=== PATIENT | female | born 1985 | race Caucasian/White ===

== ENCOUNTER 2019-02-16 18:59 | Inpatient (IN) | payer BC ==
[2019-02-16] MEDS ORDERED: Nalbuphine 20 MG/ML 1 ML Syringe IVPUSH PRN (21:15)
[2019-02-16] MEDS ORDERED: Sodium Chloride 0.9% 10 ML Syringe FLUSH PRN (21:15)
[2019-02-16] MEDS ORDERED: Lactated Ringers 1,000 ML IV SCH (21:15)
[2019-02-16] MEDS ORDERED: Ondansetron 4 MG/2 ML SDV IVPUSH PRN (21:15)
[2019-02-16] MEDS ORDERED: Oxytocin/Lactated Ringers 10 UNIT/1,000 ML BAG IV SCH ×2 (21:15)
[2019-02-16] MEDS ORDERED: Lidocaine 1% 50 ML MDV INJECT ONE (21:15)
[2019-02-16] MEDS ORDERED: Acetaminophen 325 MG Tab PO PRN (21:15)
[2019-02-17] MEDS ORDERED: Magnesium Sulfate/Water 2 GM in Premix Bag 1 BAG IV SCH (03:00)
[2019-02-17] MEDS ORDERED: Magnesium Sulfate/Water 4 GM in Premix Bag 1 BAG IV ONE (03:00)
[2019-02-17] MEDS ORDERED: MAGNESIUM SULFATE IV SCH (03:30)
[2019-02-17] MEDS ORDERED: WATER IV SCH (03:30)
[2019-02-17] MEDS ORDERED: Labetalol 100 MG/20 ML MDV IVPUSH ONE ×4 (06:11→12:37)
[2019-02-17] MEDS ORDERED: fentaNYL 100 MCG/2 ML SDV EPIDUR PRN (07:19)
[2019-02-17] MEDS ORDERED: fentaNYL/Bupivacaine-NS 2 MCG/ML-0.125%/PF 100 ML Bag EPIDUR PRN (07:19)
[2019-02-17] MEDS ORDERED: ePHEDrine 50 MG/ML SDV IVPUSH PRN ×3 (07:19→18:00)
--- NOTE | 2019-02-17 07:27 | PCM.PREANE ---
Preanesthetic Assessment - Anesthesia/Transfusion/Family Hx Anesthesia History: Prior Anesthesia Without Reaction Family History of Anesthesia Reaction: No Transfusion History: No Prior Transfusion(s) Intubation History: Unknown - Review of Systems General: No Symptoms Pulmonary: No Symptoms Cardiovascular: No Symptoms (Gestational hypertension on day of labor) Gastrointestinal: No Symptoms (GERD) Neurological: No Symptoms Other: Reports: None - Physical Assessment NPO Status Date: 02/16/19 NPO Status Time: 18:00 Pulse: 83 O2 Sat by Pulse Oximetry: 99 Respiratory Rate: 16 Blood Pressure: 144/83 Temperature: 37.5 C Vital Signs: Last Vital Signs Temp 37.5 C 02/16/19 19:52 Pulse 8 L 02/16/19 19:52 Resp 16 02/16/19 19:52 BP 144/83 H 02/16/19 19:52 Pulse Ox Height: 1.75 m Weight: 105.687 kg ASA Class: 2 Mental Status: Alert & Oriented x3 Airway Class: Mallampati = 2 Dentition: Reports: Normal Dentition, Caries Thyro-Mental Finger Breadths: 3 Mouth Opening Finger Breadths: 3 ROM/Head Extension: Full Lungs: Clear to Auscultation, Normal Respiratory Effort Cardiovascular: Regular Rate, Regular Rhythm, No Murmurs - Lab Values: Laboratory Last Values WBC 17.08 K/mm3 (3.98-10.04) H 02/17/19 01:50 RBC 4.71 M/mm3 (3.98-5.22) 02/17/19 01:50 Hgb 13.8 gm/L (11.2-15.7) 02/17/19 01:50 Hct 40.4 % (34.1-44.9) 02/17/19 01:50 MCV 85.8 fl (79.4-94.8) 02/17/19 01:50 MCH 29.3 pg (25.6-32.2) 02/17/19 01:50 MCHC 34.2 g/dl (32.2-35.5) 02/17/19 01:50 RDW Std Deviation 41.5 fL (36.4-46.3) 02/17/19 01:50 Plt Count 263 K/mm3 (182-369) 02/17/19 01:50 MPV 9.9 fl (9.4-12.3) 02/17/19 01:50 Neut % (Auto) 89.5 % (34.0-71.1) H 02/17/19 01:50 Lymph % (Auto) 6.7 % (19.3-51.7) L 02/17/19 01:50 [place] % (Auto) 3.4 % (4.7-12.5) L 02/17/19 01:50 Eos % (Auto) 0 (0.7-5.8) L 02/17/19 01:50 Baso % (Auto) 0.1 % (0.1-1.2) 02/17/19 01:50 Neut # (Auto) 15.30 K/mm3 (1.56-6.13) H 02/17/19 01:50 Lymph # (Auto) 1.14 K/mm3 (1.18-3.74) L 02/17/19 01:50 [place] # (Auto) 0.58 K/mm3 (0.24-0.36) H 02/17/19 01:50 Eos # (Auto) 0.00 K/mm3 (0.04-0.36) L 02/17/19 01:50 Baso # (Auto) 0.01 K/mm3 (0.01-0.08) 02/17/19 01:50 Manual Slide Review Abnormal smear 02/17/19 01:50 BUN 13 mg/dL (7-18) 02/17/19 01:50 Creatinine 0.9 mg/dL (0.55-1.02) 02/17/19 01:50 Est Cr Clr Drug Dosing 91.18 mL/min 02/17/19 01:50 Estimated GFR (MDRD) > 60 mL/min (>60) 02/17/19 01:50 AST 22 U/L (15-37) 02/17/19 01:50 ALT 28 U/L (14-59) 02/17/19 01:50 Above labs reviewed and noted and within acceptable ranges to proceed with epidural if desired. - Allergies Allergies/Adverse Reactions: Allergies Allergy/AdvReac Type Severity Reaction Status Date / Time No Known Allergies Allergy Verified 02/16/19 21:18 - Anesthesia Plan Pre-Op Medication Ordered: Beta Albert Beta Albert: Labetalol Med Last Dose Date: 02/17/19 Med Last Dose Time: 06:29 - Acknowledgements Anesthesia Type Planned: Epidural Pt an Appropriate Candidate for the Planned Anesthesia: Yes Alternatives and Risks of Anesthesia Discussed w Pt/Guardian: Yes Pt/Guardian Understands and Agrees with Anesthesia Plan: Yes PreAnesthesia Questionnaire HEENT History: Reports: Sinusitis Gastrointestinal History: Reports: GERD 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: Reports: Polycystic Ovaries, Spontaneous , Other (See Below) Other OB/BYN History: IVF - SUBSTANCE USE Smoking Status *Q: Never Smoker Tobacco Use Within Last Twelve Months: No Second Hand Smoke Exposure: Yes Recreational Drug Use History: No - HOME MEDS Home Medications: Home Meds PNV95/Ferrous Fumarate/FA [ Tablet] 1 tab PO DAILY 02/16/19 [History] - CURRENT (IN HOUSE) MEDS Current Meds: Current Medications Acetaminophen (Tylenol) 650 mg PO Q4H PRN PRN Reason: Pain (Mild 1-3) and fever Ephedrine Sulfate (Ephedrine Sulfate) 5 mg IVPUSH ASDIRECTED PRN PRN Reason: Hypotension Fentanyl (Sublimaze) 100 mcg EPIDUR Q3H PRN PRN Reason: Pain Fentanyl/Bupivacaine HCl (Rxlfcnte-Ypkut-Rt 2 Mcg/Ml-0.125%) 100 ml EPIDUR ASDIRECTED PRN PRN Reason: Pain Lactated Ringer's (Ringers, Lactated) 1,000 mls @ 100 mls/hr IV ASDIRECTED BALJIT Last Admin: 02/17/19 03:16 Dose: 50 mls/hr Oxytocin/Lactated Ringer's (Pitocin In Lr 10 Units/1,000 Ml) 10 unit in 1,000 mls @ 12 mls/hr IV TITRATE BALJIT; Protocol Last Titration: 02/17/19 06:45 Dose: 4 munits/min, 24 mls/hr Oxytocin/Lactated Ringer's (Pitocin In Lr 10 Units/1,000 Ml) 10 unit in 1,000 mls @ 100 mls/hr IV .CONTINUOUS BALJIT; Protocol Magnesium Sulfate (Magnesium Sulfate 40 Gm In Water 1000 Ml) 40 gm in 1,000 mls @ 50 mls/hr IV ASDIRECTED BALJIT Last Admin: 02/17/19 03:21 Dose: 50 mls/hr Phenylephrine HCl 1 mg/ Sodium (Chloride) 10.1 mls @ 1 mls/sec IV TITRATE BALJIT; Protocol Nalbuphine HCl (Nubain) 10 mg IVPUSH Q2H PRN PRN Reason: pain Ondansetron HCl (Zofran) 4 mg IVPUSH Q4H PRN PRN Reason: Nausea/Vomiting Sodium Chloride (Saline Flush) 10 ml FLUSH ASDIRECTED PRN PRN Reason: Keep Vein Open Discontinued Medications Magnesium Sulfate 4 gm/ Premix 50 mls @ 190 mls/hr IV ONETIME ONE Stop: 02/17/19 03:15 Last Admin: 02/17/19 03:05 Dose: 190 mls/hr Magnesium Sulfate 2 gm/ Premix 50 mls @ 25 mls/hr IV Q1H BALJIT Stop: 02/17/19 04:59 Labetalol HCl (Normodyne) 10 mg IVPUSH ONETIME ONE; Protocol Stop: 02/17/19 06:12 Last Admin: 02/17/19 06:26 Dose: 10 mg Lidocaine HCl (Xylocaine 1%) 50 ml INJECT ONETIME ONE Stop: 02/16/19 21:16
[2019-02-17] MEDS ORDERED: Phenylephrine 1 MG in Sodium Chloride 0.9% 10 ML IV SCH ×2 (07:30→17:00)
[2019-02-17] MEDS ORDERED: hydrALAZINE 20 MG/ML SDV IVPUSH ONE (09:51)
--- NOTE | 2019-02-17 14:27 | PCM.LDHP ---
L&D History of Present Illness - General Date of Service: 02/17/19 Admit Problem/Dx: Patient Status Order with Admit Dx/Problem 02/16/19 21:15 Patient Status [ADT] Routine Admission Diagnosis/Problem Admission Diagnosis/Problem Source of Information: Patient History Limitations: Reports: No Limitations - History of Present Illness Introduction:: 33 year old at 41w0d here for induction of labor for dates. PNC with myself complicated by IVF, PCOS. 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: Reports: Polycystic Ovaries, Spontaneous , Other (See Below) Other OB/BYN History: IVF Social & Family History - Family History Family Medical History: Noncontributory - Tobacco Use Smoking Status *Q: Never Smoker Second Hand Smoke Exposure: Yes - Caffeine Use Caffeine Use: Reports: None - Recreational Drug Use Recreational Drug Use: No H&P Review of Systems - Review of Systems: Review Of Systems: See Below General: Reports: No Symptoms HEENT: Reports: No Symptoms Pulmonary: Reports: No Symptoms Cardiovascular: Reports: No Symptoms Gastrointestinal: Reports: No Symptoms Genitourinary: Reports: No Symptoms Musculoskeletal: Reports: No Symptoms Skin: Reports: No Symptoms Psychiatric: Reports: No Symptoms Neurological: Reports: No Symptoms Hematologic/Lymphatic: Reports: No Symptoms Immunologic: Reports: No Symptoms L&D Exam - Exam Exam: See Below - Vital Signs Vital Signs: Last Vital Signs Temp 36.7 C 02/17/19 08:57 Pulse 53 L 02/17/19 12:30 Resp 16 02/17/19 07:27 BP 169/98 H 02/17/19 12:00 Pulse Ox 99 02/17/19 07:27 Weight: 105.687 kg - OB Specific Contraction Intensity: Mild Movement: Active Heart Tones: Present Heart Rate (FHR) Variability: Moderate (6-25 bmp) Presentation: Vertex Estimated Weight: 3850 - Yung Score Yung Score Cervix Position: Midposition Yung Score Consistency: Soft Yung Score Effacement: >80% Yung Score Dilation: > 5 cm Yung Score 's Station: -2 Yung Score Total: 10 - Exam General: Alert, Oriented HEENT: PERRLA, Conjunctiva Clear, EACs Clear, EOMI, Hearing Intact, Mucosa Moist & [place], Nares Patent, Normal Nasal Septum, Posterior Pharynx Clear, TMs Clear Neck: Supple, Trachea Midline Lungs: Clear to Auscultation, Normal Respiratory Effort Cardiovascular: Regular Rate, Regular Rhythm GI/Abdominal Exam: Normal Bowel Sounds, Soft, Non-Tender, No Organomegaly, No Distention, No Abnormal Bruit, No Mass, Pelvis Stable Rectal Exam: Normal Exam, Normal Rectal Tone Genitourinary: Normal external exam, Normal bimanual exam, Normal speculum exam Back Exam: Normal Inspection, Full Range of Motion Extremities: Normal Inspection, Normal Range of Motion, Non-Tender, No Pedal Edema, Normal Capillary Refill Skin: Warm, Dry, Intact Neurological: Cranial Nerves Intact, Reflexes Equal Bilateral Psychiatric: Alert, Normal Affect, Normal Mood - Patient Data Lab Results Last 24 hrs: Laboratory Results - last 24 hr 02/16/19 02/16/19 02/17/19 Range/Units 21:25 21:25 01:50 WBC 14.20 H 17.08 H (3.98-10.04) K/mm3 RBC 4.55 4.71 (3.98-5.22) M/mm3 Hgb 13.5 13.8 (11.2-15.7) gm/L Hct 39.5 40.4 (34.1-44.9) % MCV 86.8 85.8 (79.4-94.8) fl MCH 29.7 29.3 (25.6-32.2) pg MCHC 34.2 34.2 (32.2-35.5) g/dl RDW Std Deviation 41.0 41.5 (36.4-46.3) fL Plt Count 282 263 (182-369) K/mm3 MPV 9.8 9.9 (9.4-12.3) fl Neut % (Auto) 71.6 H 89.5 H (34.0-71.1) % Lymph % (Auto) 19.9 6.7 L (19.3-51.7) % [place] % (Auto) 7.5 3.4 L (4.7-12.5) % Eos % (Auto) 0.5 L 0 L (0.7-5.8) Baso % (Auto) 0.1 0.1 (0.1-1.2) % Neut # (Auto) 10.18 H 15.30 H (1.56-6.13) K/mm3 Lymph # (Auto) 2.83 1.14 L (1.18-3.74) K/mm3 [place] # (Auto) 1.06 H 0.58 H (0.24-0.36) K/mm3 Eos # (Auto) 0.07 0.00 L (0.04-0.36) K/mm3 Baso # (Auto) 0.01 0.01 (0.01-0.08) K/mm3 Manual Slide Review Abnormal smear BUN (7-18) mg/dL Creatinine (0.55-1.02) mg/dL Est Cr Clr Drug Dosing mL/min Estimated GFR (MDRD) (>60) mL/min Uric Acid (2.6-6.0) mg/dL AST (15-37) U/L ALT (14-59) U/L Lactate Dehydrogenase (81-234) U/L RPR Non-reactive (NONREACTIVE) 02/17/19 Range/Units 01:50 WBC (3.98-10.04) K/mm3 RBC (3.98-5.22) M/mm3 Hgb (11.2-15.7) gm/L Hct (34.1-44.9) % MCV (79.4-94.8) fl MCH (25.6-32.2) pg MCHC (32.2-35.5) g/dl RDW Std Deviation (36.4-46.3) fL Plt Count (182-369) K/mm3 MPV (9.4-12.3) fl Neut % (Auto) (34.0-71.1) % Lymph % (Auto) (19.3-51.7) % [place] % (Auto) (4.7-12.5) % Eos % (Auto) (0.7-5.8) Baso % (Auto) (0.1-1.2) % Neut # (Auto) (1.56-6.13) K/mm3 Lymph # (Auto) (1.18-3.74) K/mm3 [place] # (Auto) (0.24-0.36) K/mm3 Eos # (Auto) (0.04-0.36) K/mm3 Baso # (Auto) (0.01-0.08) K/mm3 Manual Slide Review BUN 13 (7-18) mg/dL Creatinine 0.9 (0.55-1.02) mg/dL Est Cr Clr Drug Dosing 91.18 mL/min Estimated GFR (MDRD) > 60 (>60) mL/min Uric Acid 5.9 (2.6-6.0) mg/dL AST 22 (15-37) U/L ALT 28 (14-59) U/L Lactate Dehydrogenase 153 (81-234) U/L RPR (NONREACTIVE) Result Diagrams: 02/17/19 01:50 02/17/19 01:50 Problem List Initiated/Reviewed/Updated: Yes Orders Last 24hrs: Active Orders 24 hr Category Date Time Status Patient Status [ADT] Routine ADT 02/16/19 21:15 Active Activity as Tolerated [RC] PFP Care 02/16/19 21:15 Active Communication Order [RC] ASDIRECTED Care 02/16/19 21:15 Active Heart Tones [RC] ASDIRECTED Care 02/16/19 21:16 Active Notify Provider [RC] ASDIRECTED Care 02/17/19 07:19 Active Notify Provider [RC] PFP Care 02/16/19 21:15 Active Oxygen Therapy [RC] ASDIRECTED Care 02/17/19 07:19 Active Peripheral IV Care [RC] . DIRECTED Care 02/16/19 21:16 Active Pulse Oximetry [RC] ASDIRECTED Care 02/17/19 07:19 Active Urinary Catheter Assessment [RC] ASDIRECTED Care 02/16/19 21:15 Active Vital Signs [RC] PER UNIT ROUTINE Care 02/16/19 21:15 Active Acetaminophen [Tylenol] Med 02/16/19 21:15 Active 650 mg PO Q4H PRN Lactated Ringers [Ringers, Lactated] 1,000 ml Med 02/16/19 21:15 Active IV ASDIRECTED Magnesium Sulfate/Water [Magnesium Sulfate 40 GM in Med 02/17/19 03:30 Active Water 1000 ML] 40 gm in 1,000 ml IV ASDIRECTED Nalbuphine [Nubain] Med 02/16/19 21:15 Active 10 mg IVPUSH Q2H PRN Ondansetron [Zofran] Med 02/16/19 21:15 Active 4 mg IVPUSH Q4H PRN Oxytocin/Lactated Ringers [Pitocin in LR 10 Units/1,000 Med 02/16/19 21:15 Active ML] 10 unit in 1,000 ml IV .CONTINUOUS Oxytocin/Lactated Ringers [Pitocin in LR 10 Units/1,000 Med 02/16/19 21:15 Active ML] 10 unit in 1,000 ml IV TITRATE Phenylephrine [Marcio-Synephrine] 1 mg Med 02/17/19 07:30 Active Sodium Chloride 0.9% [Normal Saline] 10 ml IV TITRATE Sodium Chloride 0.9% [Saline Flush] Med 02/16/19 21:15 Active 10 ml FLUSH ASDIRECTED PRN ePHEDrine [ePHEDrine sulfate] Med 02/17/19 07:19 Active 5 mg IVPUSH ASDIRECTED PRN fentaNYL [Sublimaze] Med 02/17/19 07:19 Active 100 mcg EPIDUR Q3H PRN fentaNYL/Bupivacaine/NS/PF [[id number]-RT 2 MCG/ML- Med 02/17/19 07:19 Active 0.125%] 100 ml EPIDUR ASDIRECTED PRN Electronic Heart Tones Ext w TOCO [WOMSER] Ot 02/16/19 21:15 Ordered Routine Electronic Heart Tones Internal [WOMSER] Per Unit Ot 02/16/19 21:15 Ordered Routine PIH Panel [OM.PC] Stat Ot 02/17/19 01:34 Ordered Peripheral IV Insertion Adult [OM.PC] Routine Ot 02/16/19 21:15 Ordered Resuscitation Status Routine Resus Stat 02/16/19 21:15 Ordered Medication Orders Acetaminophen (Tylenol) 650 mg PO Q4H PRN PRN Reason: Pain (Mild 1-3) and fever Ephedrine Sulfate (Ephedrine Sulfate) 5 mg IVPUSH ASDIRECTED PRN PRN Reason: Hypotension Fentanyl (Sublimaze) 100 mcg EPIDUR Q3H PRN PRN Reason: Pain Fentanyl/Bupivacaine HCl (Ynhqrnby-Scieo-Yk 2 Mcg/Ml-0.125%) 100 ml EPIDUR ASDIRECTED PRN PRN Reason: Pain Lactated Ringer's (Ringers, Lactated) 1,000 mls @ 100 mls/hr IV ASDIRECTED BALJIT Last Admin: 02/17/19 03:16 Dose: 50 mls/hr Oxytocin/Lactated Ringer's (Pitocin In Lr 10 Units/1,000 Ml) 10 unit in 1,000 mls @ 12 mls/hr IV TITRATE BALJIT; Protocol Last Titration: 02/17/19 14:18 Dose: 12 munits/min, 72 mls/hr Titration: 02/17/19 13:45 Dose: 11 munits/min, 66 mls/hr Titration: 02/17/19 13:25 Dose: 10 munits/min, 60 mls/hr Titration: 02/17/19 12:22 Dose: 9 munits/min, 54 mls/hr Titration: 02/17/19 11:45 Dose: 8 munits/min, 48 mls/hr Titration: 02/17/19 10:03 Dose: 7 munits/min, 42 mls/hr Titration: 02/17/19 08:56 Dose: 6 munits/min, 36 mls/hr Titration: 02/17/19 07:50 Dose: 5 munits/min, 30 mls/hr Titration: 02/17/19 06:45 Dose: 4 munits/min, 24 mls/hr Admin: 02/17/19 05:15 Dose: 2 munits/min, 12 mls/hr Oxytocin/Lactated Ringer's (Pitocin In Lr 10 Units/1,000 Ml) 10 unit in 1,000 mls @ 100 mls/hr IV .CONTINUOUS BALJIT; Protocol Magnesium Sulfate (Magnesium Sulfate 40 Gm In Water 1000 Ml) 40 gm in 1,000 mls @ 50 mls/hr IV ASDIRECTED BALJIT Last Admin: 02/17/19 03:21 Dose: 50 mls/hr Phenylephrine HCl 1 mg/ Sodium (Chloride) 10.1 mls @ 1 mls/sec IV TITRATE BALJIT; Protocol Nalbuphine HCl (Nubain) 10 mg IVPUSH Q2H PRN PRN Reason: pain Last Admin: 02/17/19 10:11 Dose: 10 mg Ondansetron HCl (Zofran) 4 mg IVPUSH Q4H PRN PRN Reason: Nausea/Vomiting Sodium Chloride (Saline Flush) 10 ml FLUSH ASDIRECTED PRN PRN Reason: Keep Vein Open Assessment/Plan Comment:: Postdates induction. AROM. Meconium stained fluid.
--- NOTE | 2019-02-17 14:29 | PCM.PNLD ---
Labor Progress Note - VS & Meds Vital Signs: Last Vital Signs Temp 36.7 C 02/17/19 08:57 Pulse 53 L 02/17/19 12:30 Resp 16 02/17/19 07:27 BP 169/98 H 02/17/19 12:00 Pulse Ox 99 02/17/19 07:27 Active Medications: Current Medications Acetaminophen (Tylenol) 650 mg PO Q4H PRN PRN Reason: Pain (Mild 1-3) and fever Ephedrine Sulfate (Ephedrine Sulfate) 5 mg IVPUSH ASDIRECTED PRN PRN Reason: Hypotension Fentanyl (Sublimaze) 100 mcg EPIDUR Q3H PRN PRN Reason: Pain Fentanyl/Bupivacaine HCl (Mcxsensz-Gsvis-Hy 2 Mcg/Ml-0.125%) 100 ml EPIDUR ASDIRECTED PRN PRN Reason: Pain Lactated Ringer's (Ringers, Lactated) 1,000 mls @ 100 mls/hr IV ASDIRECTED BALJIT Last Admin: 02/17/19 03:16 Dose: 50 mls/hr Oxytocin/Lactated Ringer's (Pitocin In Lr 10 Units/1,000 Ml) 10 unit in 1,000 mls @ 12 mls/hr IV TITRATE BALJIT; Protocol Last Titration: 02/17/19 14:18 Dose: 12 munits/min, 72 mls/hr Oxytocin/Lactated Ringer's (Pitocin In Lr 10 Units/1,000 Ml) 10 unit in 1,000 mls @ 100 mls/hr IV .CONTINUOUS BALJIT; Protocol Magnesium Sulfate (Magnesium Sulfate 40 Gm In Water 1000 Ml) 40 gm in 1,000 mls @ 50 mls/hr IV ASDIRECTED BALJIT Last Admin: 02/17/19 03:21 Dose: 50 mls/hr Phenylephrine HCl 1 mg/ Sodium (Chloride) 10.1 mls @ 1 mls/sec IV TITRATE BALJIT; Protocol Nalbuphine HCl (Nubain) 10 mg IVPUSH Q2H PRN PRN Reason: pain Last Admin: 02/17/19 10:11 Dose: 10 mg Ondansetron HCl (Zofran) 4 mg IVPUSH Q4H PRN PRN Reason: Nausea/Vomiting Sodium Chloride (Saline Flush) 10 ml FLUSH ASDIRECTED PRN PRN Reason: Keep Vein Open Discontinued Medications Hydralazine HCl (Apresoline) 5 mg IVPUSH ONETIME ONE Stop: 02/17/19 09:52 Last Admin: 02/17/19 10:03 Dose: 5 mg Magnesium Sulfate 4 gm/ Premix 50 mls @ 190 mls/hr IV ONETIME ONE Stop: 02/17/19 03:15 Last Admin: 02/17/19 03:05 Dose: 190 mls/hr Magnesium Sulfate 2 gm/ Premix 50 mls @ 25 mls/hr IV Q1H BALJIT Stop: 02/17/19 04:59 Labetalol HCl (Normodyne) 10 mg IVPUSH ONETIME ONE; Protocol Stop: 02/17/19 06:12 Last Admin: 02/17/19 06:26 Dose: 10 mg Labetalol HCl (Normodyne) 10 mg IVPUSH ONETIME ONE; Protocol Stop: 02/17/19 08:35 Last Admin: 02/17/19 08:42 Dose: 10 mg Labetalol HCl (Normodyne) 20 mg IVPUSH ONETIME ONE; Protocol Stop: 02/17/19 11:52 Last Admin: 02/17/19 12:06 Dose: 20 mg Labetalol HCl (Normodyne) 20 mg IVPUSH ONETIME ONE; Protocol Stop: 02/17/19 12:38 Last Admin: 02/17/19 12:40 Dose: 20 mg Lidocaine HCl (Xylocaine 1%) 50 ml INJECT ONETIME ONE Stop: 02/16/19 21:16 - Uterine Contractions Uterine Monitoring Mode: External [place] Contraction Intensity: Mild - Monitoring Monitor Mode: External Ultrasound Heart Rate (FHR) Variability: Moderate (6-25 bmp) - Vaginal Exam Dilation (cm): 7 Effacement (Percent): 90 Station: -2 Cervical Position: Anterior - Labor Progress (Free Text) Labor Progress: Good progress. On magnesium since 3:15 am with high blood pressures. Tolerating this well.
--- NOTE | 2019-02-17 14:32 | PCM.PNLD ---
Labor Progress Note - VS & Meds Vital Signs: Last Vital Signs Temp 36.7 C 02/17/19 08:57 Pulse 53 L 02/17/19 12:30 Resp 16 02/17/19 07:27 BP 169/98 H 02/17/19 12:00 Pulse Ox 99 02/17/19 07:27 Active Medications: Current Medications Acetaminophen (Tylenol) 650 mg PO Q4H PRN PRN Reason: Pain (Mild 1-3) and fever Ephedrine Sulfate (Ephedrine Sulfate) 5 mg IVPUSH ASDIRECTED PRN PRN Reason: Hypotension Fentanyl (Sublimaze) 100 mcg EPIDUR Q3H PRN PRN Reason: Pain Fentanyl/Bupivacaine HCl (Xllvpjcz-Viccp-Gw 2 Mcg/Ml-0.125%) 100 ml EPIDUR ASDIRECTED PRN PRN Reason: Pain Lactated Ringer's (Ringers, Lactated) 1,000 mls @ 100 mls/hr IV ASDIRECTED BALJIT Last Admin: 02/17/19 03:16 Dose: 50 mls/hr Oxytocin/Lactated Ringer's (Pitocin In Lr 10 Units/1,000 Ml) 10 unit in 1,000 mls @ 12 mls/hr IV TITRATE BALJIT; Protocol Last Titration: 02/17/19 14:18 Dose: 12 munits/min, 72 mls/hr Oxytocin/Lactated Ringer's (Pitocin In Lr 10 Units/1,000 Ml) 10 unit in 1,000 mls @ 100 mls/hr IV .CONTINUOUS BALJIT; Protocol Magnesium Sulfate (Magnesium Sulfate 40 Gm In Water 1000 Ml) 40 gm in 1,000 mls @ 50 mls/hr IV ASDIRECTED BALJIT Last Admin: 02/17/19 03:21 Dose: 50 mls/hr Phenylephrine HCl 1 mg/ Sodium (Chloride) 10.1 mls @ 1 mls/sec IV TITRATE BALJIT; Protocol Nalbuphine HCl (Nubain) 10 mg IVPUSH Q2H PRN PRN Reason: pain Last Admin: 02/17/19 10:11 Dose: 10 mg Ondansetron HCl (Zofran) 4 mg IVPUSH Q4H PRN PRN Reason: Nausea/Vomiting Sodium Chloride (Saline Flush) 10 ml FLUSH ASDIRECTED PRN PRN Reason: Keep Vein Open Discontinued Medications Hydralazine HCl (Apresoline) 5 mg IVPUSH ONETIME ONE Stop: 02/17/19 09:52 Last Admin: 02/17/19 10:03 Dose: 5 mg Magnesium Sulfate 4 gm/ Premix 50 mls @ 190 mls/hr IV ONETIME ONE Stop: 02/17/19 03:15 Last Admin: 02/17/19 03:05 Dose: 190 mls/hr Magnesium Sulfate 2 gm/ Premix 50 mls @ 25 mls/hr IV Q1H BALJIT Stop: 02/17/19 04:59 Labetalol HCl (Normodyne) 10 mg IVPUSH ONETIME ONE; Protocol Stop: 02/17/19 06:12 Last Admin: 02/17/19 06:26 Dose: 10 mg Labetalol HCl (Normodyne) 10 mg IVPUSH ONETIME ONE; Protocol Stop: 02/17/19 08:35 Last Admin: 02/17/19 08:42 Dose: 10 mg Labetalol HCl (Normodyne) 20 mg IVPUSH ONETIME ONE; Protocol Stop: 02/17/19 11:52 Last Admin: 02/17/19 12:06 Dose: 20 mg Labetalol HCl (Normodyne) 20 mg IVPUSH ONETIME ONE; Protocol Stop: 02/17/19 12:38 Last Admin: 02/17/19 12:40 Dose: 20 mg Lidocaine HCl (Xylocaine 1%) 50 ml INJECT ONETIME ONE Stop: 02/16/19 21:16 - Uterine Contractions Uterine Monitoring Mode: External [place] Contraction Intensity: Mild Uterine Resting Tone: Soft - Monitoring Monitor Mode: External Ultrasound Heart Rate (FHR) Variability: Moderate (6-25 bmp) Strip Review: Category I - Vaginal Exam Dilation (cm): 10 Effacement (Percent): 100 Station: -1 Cervical Position: Anterior - Labor Progress (Free Text) Labor Progress: Pushing somewhat well. Slow progress. Have needed to treat blood pressures with IV medications multiple times. Discussed possibility of .
[2019-02-17] MEDS ORDERED: Nalbuphine 20 MG/ML 1 ML Syringe IVPUSH PRN (15:37)
[2019-02-17] MEDS ORDERED: Sodium Chloride 0.9% 10 ML Syringe FLUSH PRN (15:37)
[2019-02-17] MEDS ORDERED: Citric Acid/Sodium Citrate Solution 30 ML Cup PO ONE (15:37)
[2019-02-17] MEDS ORDERED: Metoclopramide 10 MG/2 ML SDV IVPUSH ONE (15:37)
[2019-02-17] MEDS ORDERED: Bupivacaine 0.5% 30 ML SDV ONE (15:39)
[2019-02-17] MEDS ORDERED: Lactated Ringers 1,000 ML IV SCH (15:45)
[2019-02-17] MEDS ORDERED: Ketorolac 30 MG/ML SDV ONE (16:09)
[2019-02-17] MEDS ORDERED: Phenylephrine/Normal Saline 100 MCG/ML 10 ML Syringe ONE ×2 (16:09→17:15)
[2019-02-17] MEDS ORDERED: Lactated Ringers 2,000 ML ONE (16:09)
[2019-02-17] MEDS ORDERED: Ondansetron 4 MG/2 ML SDV ONE (16:09)
[2019-02-17] MEDS ORDERED: Oxytocin 10 Units/1 ML SDV ONE (16:09)
[2019-02-17] MEDS ORDERED: ceFAZolin 1 GM Vial ONE (16:09)
[2019-02-17] MEDS ORDERED: Morphine PF 10 MG/10 ML SDV ONE (16:09)
[2019-02-17] MEDS ORDERED: Ondansetron 4 MG/2 ML SDV IVPUSH PRN (16:48)
[2019-02-17] MEDS ORDERED: fentaNYL 100 MCG/2 ML SDV IVPUSH PRN (16:48)
[2019-02-17] MEDS ORDERED: HYDROmorphone 0.5 MG/0.5 ML Syringe IVPUSH PRN (16:48)
[2019-02-17] MEDS ORDERED: diphenhydrAMINE 50 MG/ML SDV IVPUSH PRN ×2 (16:48→18:00)
[2019-02-17] MEDS ORDERED: ePHEDrine 50 MG/ML SDV ONE (17:07)
[2019-02-17] MEDS ORDERED: fentaNYL 100 MCG/2 ML SDV ONE (17:09)
--- NOTE | 2019-02-17 17:39 | PCM.POSTAN ---
POST ANESTHESIA ASSESSMENT - MENTAL STATUS Mental Status: Alert - VITAL SIGNS Pulse Rate: 107 SaO2: 95 Resp Rate: 13 Blood Pressure: 87/64 Temperature: 36.6 C - RESPIRATORY Respiratory Status: Respiratory Rate WNL, Airway Patent, O2 Saturation Stable - CARDIOVASCULAR CV Status: Pulse Rate WNL, Blood Pressure Stable - GASTROINTESTINAL GI Status: No Symptoms - POST OP HYDRATION Hydration Status: Adequate & Stable
[2019-02-17] MEDS ORDERED: Naloxone 0.4 MG/ML SDV IVPUSH PRN (18:00)
[2019-02-17] MEDS ORDERED: Acetaminophen/oxyCODONE 325-5 MG Tab PO PRN (18:00)
[2019-02-17] MEDS ORDERED: Lanolin 100% Cream 7 GM Tube TOP PRN (18:00)
[2019-02-17] MEDS ORDERED: Dextrose 5%-Lactated Ringers 1,000 ML IV SCH (18:00)
[2019-02-17] MEDS: Ketorolac 30 MG/ML SDV IVPUSH SCH (22:15)
[2019-02-18] MEDS: Ketorolac 30 MG/ML SDV IVPUSH SCH ×2 (04:49→09:27)
--- NOTE | 2019-02-18 08:17 | PCM48HPAN ---
Post Anesthesia Note - EVALUATION WITHIN 48HRS OF ANESTHETIC Vital Signs in Normal Range: Yes Patient Participated in Evaluation: Yes Respiratory Function Stable: Yes Airway Patent: Yes Cardiovascular Function Stable: Yes Hydration Status Stable: Yes Pain Control Satisfactory: Yes Nausea and Vomiting Control Satisfactory: Yes Mental Status Recovered: Yes
[2019-02-18] MEDS ORDERED: Acetaminophen/oxyCODONE 325-5 MG Tab PO PRN (12:15)
[2019-02-18] MEDS: Ibuprofen 600 MG Tab PO PRN ×2 (14:52→21:44)
[2019-02-19] MEDS: Ibuprofen 600 MG Tab PO PRN (04:01)
[2019-02-19] MEDS ORDERED: Docusate Sodium 100 MG Cap PO PRN (05:24)
[2019-02-19] MEDS ORDERED: Simethicone 80 MG Tab.Chew PO PRN (05:24)
--- NOTE | 2019-02-27 18:36 | PCM.OPNOTE ---
- General Post-Op/Procedure Note Date of Surgery/Procedure: 02/17/19 Operative Procedure(s): primary section Findings: viable male, 3990g, 05/29 at 1655. Normal uterus tubes and ovaries Pre Op Diagnosis: non-reassuring monitoring Post-Op Diagnosis: Same Anesthesia Technique: Spinal Primary Surgeon: Shira Sue Individualized Education Plan Aide: Rin Martin EBL in mLs: 800 Complications: None Condition: Good Free Text/Narrative:: The patient was taken to the operating room where spinal anesthesia was dosed to surgical levels without difficulty. The patient was prepped and draped in the usual sterile fashion in the dorsal supine position with a leftward tilt. A Pfannenstiel skin incision was made with the scalpel and carried through to the underlying layer of fascia. The fascia was incised in the midline and extended laterally using Mccray scissors. Tre clamps were used to elevate the superior aspect of the fascial incision, which was elevated, and the underlying rectus muscles were dissected off bluntly and using Mccray scissors. Attention was then turned to the inferior aspect of the fascial incision, which in similar fashion was grasped with Tre clamps, elevated, and the underlying rectus muscles were dissected off bluntly and using the mccray. The rectus muscles were dissected in the midline. The peritoneum was entered bluntly; this incision was extended superiorly and inferiorly with good visualization of the bladder. The bladder blade was inserted. The vesicouterine peritoneum was identified and entered sharply using Metzenbaum scissors. This incision was extended laterally and the bladder flap was created digitally. The bladder blade was reinserted. The lower uterine segment was incised in a transverse fashion using the scalpel and with digital traction. Meconium stained fluid was noted. The infant was subsequently delivered by flexing the head to the incision. Body and shoulders followed without difficulty. The cord was clamped and cut. The infant was subsequently handed to the awaiting spot worker whose presence had been requested.. The placenta was delivered spontaneously intact with a three-vessel cord noted. The uterus was exteriorized and cleared of all clots and debris. The uterine incision was repaired in 2 layers using 0 monocryl. Hemostasis was visualized. Hemostasis was visualized bilaterally. The uterus was returned to the abdomen. The uterine incision was reexamined and it was noted to be hemostatic. The pelvis was copiously irrigated. The fascia was closed with 1 PDS suture, and the skin was closed with 3-0 monocryl. Sponge, lap, and instrument counts were correct x2. The patient was stable at the completion of the procedure and was subsequently transferred to the recovery room in stable condition.
--- NOTE | 2019-03-03 09:59 | PCM.DCSUM1 ---
Discharge Summary - Hospital Course Diagnosis: Stroke: No - Discharge Data Discharge Date: 02/19/19 Discharge Disposition: Home, Self-Care 01 Condition: Good - Patient Summary/Data Operative Procedure(s) Performed: primary section - Patient Instructions Diet: Regular Diet as Tolerated Activity: No Lifting Over 10 Pounds Driving: Do Not Drive Showering/Bathing: May Shower, No Tub Bathing/Swimming Wound/Incision Care: Keep Operative Site/Wound Site Clean and Dry Notify Provider of: Fever, Increased Pain, Swelling and Redness, Drainage, Nausea and/or Vomiting - Discharge Plan *PRESCRIPTION DRUG MONITORING PROGRAM REVIEWED*: Not Applicable *COPY OF PRESCRIPTION DRUG MONITORING REPORT IN PATIENT [place]: Not Applicable Home Medications: Home Meds PNV95/Ferrous Fumarate/FA [ Tablet] 1 tab PO DAILY 02/16/19 [History] Patient Handouts: Delivery, Care After, Tips for a Good Latch - Discharge Summary/Plan Comment DC Time >30 min.: No - General Info Date of Service: 02/19/19 Functional Status: Reports: Pain Controlled - Review of Systems General: Reports: No Symptoms HEENT: Reports: No Symptoms Pulmonary: Reports: No Symptoms Cardiovascular: Reports: No Symptoms Gastrointestinal: Reports: No Symptoms Genitourinary: Reports: No Symptoms Musculoskeletal: Reports: No Symptoms Skin: Reports: No Symptoms Neurological: Reports: No Symptoms Psychiatric: Reports: No Symptoms - Patient Data Vitals - Most Recent: Last Vital Signs Temp 36.4 C 02/19/19 08:30 Pulse 78 02/19/19 08:30 Resp 16 02/19/19 08:30 BP 136/83 02/19/19 08:30 Pulse Ox 98 02/19/19 08:30 Weight - Most Recent: 105.687 kg Med Orders - Current: Current Medications Discontinued Medications Acetaminophen (Tylenol) 650 mg PO Q4H PRN PRN Reason: Pain (Mild 1-3) and fever Bupivacaine HCl (Marcaine 0.5%) Confirm Administered Dose 30 ml .ROUTE .STK-MED ONE Stop: 02/17/19 15:40 Last Admin: 02/17/19 16:49 Dose: 20 ml Cefazolin Sodium (Ancef) Confirm Administered Dose 2 gm .ROUTE .STK-MED ONE Stop: 02/17/19 16:10 Citric Acid/Sodium Citrate (Bicitra Solution) 30 ml PO ONETIME ONE Stop: 02/17/19 15:38 Last Admin: 02/17/19 16:08 Dose: 30 ml Diphenhydramine HCl (Benadryl) 25 mg IVPUSH Q6H PRN PRN Reason: pruritis Diphenhydramine HCl (Benadryl) 25 mg IVPUSH Q6H PRN PRN Reason: Itching or Nausea Docusate Sodium (Colace) 100 mg PO BID PRN PRN Reason: Constipation Last Admin: 02/19/19 06:17 Dose: 100 mg Emollient Ointment (Lansinoh Hpa) 0 gm TOP ASDIRECTED PRN PRN Reason: Sore Nipples Ephedrine Sulfate (Ephedrine Sulfate) 5 mg IVPUSH ASDIRECTED PRN PRN Reason: Hypotension Ephedrine Sulfate (Ephedrine Sulfate) 5 mg IVPUSH ASDIRECTED PRN PRN Reason: Hypotension Ephedrine Sulfate (Ephedrine Sulfate) Confirm Administered Dose 50 mg .ROUTE .STK-MED ONE Stop: 02/17/19 17:08 Ephedrine Sulfate (Ephedrine Sulfate) 5 mg IVPUSH SEECOMMENT PRN PRN Reason: Other Fentanyl (Sublimaze) 100 mcg EPIDUR Q3H PRN PRN Reason: Pain Fentanyl (Sublimaze) 50 mcg IVPUSH Q5M PRN PRN Reason: Pain Fentanyl (Sublimaze) Confirm Administered Dose 100 mcg .ROUTE .STK-MED ONE Stop: 02/17/19 17:10 Fentanyl/Bupivacaine HCl (Eyvfnciq-Bgitg-Uy 2 Mcg/Ml-0.125%) 100 ml EPIDUR ASDIRECTED PRN PRN Reason: Pain Hydralazine HCl (Apresoline) 5 mg IVPUSH ONETIME ONE Stop: 02/17/19 09:52 Last Admin: 02/17/19 10:03 Dose: 5 mg Hydromorphone HCl (Dilaudid) 0.5 mg IVPUSH Q15M PRN PRN Reason: Pain (severe 7-10) Lactated Ringer's (Ringers, Lactated) 1,000 mls @ 100 mls/hr IV ASDIRECTED BALJIT Last Admin: 02/17/19 03:16 Dose: 50 mls/hr Oxytocin/Lactated Ringer's (Pitocin In Lr 10 Units/1,000 Ml) 10 unit in 1,000 mls @ 12 mls/hr IV TITRATE BALJIT; Protocol Last Titration: 02/17/19 16:00 Dose: 0 munits/min, 0 mls/hr Oxytocin/Lactated Ringer's (Pitocin In Lr 10 Units/1,000 Ml) 10 unit in 1,000 mls @ 100 mls/hr IV .CONTINUOUS BALJIT; Protocol Magnesium Sulfate 4 gm/ Premix 50 mls @ 190 mls/hr IV ONETIME ONE Stop: 02/17/19 03:15 Last Admin: 02/17/19 03:05 Dose: 190 mls/hr Magnesium Sulfate 2 gm/ Premix 50 mls @ 25 mls/hr IV Q1H BALJIT Stop: 02/17/19 04:59 Magnesium Sulfate (Magnesium Sulfate 40 Gm In Water 1000 Ml) 40 gm in 1,000 mls @ 50 mls/hr IV ASDIRECTED BALJIT Last Infusion: 02/17/19 16:00 Dose: 0 mls/hr Phenylephrine HCl 1 mg/ Sodium (Chloride) 10.1 mls @ 1 mls/sec IV TITRATE BALJIT; Protocol Lactated Ringer's (Ringers, Lactated) 1,000 mls @ 125 mls/hr IV ASDIRECTED BALJIT Lactated Ringer's (Ringers, Lactated) Confirm Administered Dose 2,000 mls @ as directed .ROUTE .STK-MED ONE Stop: 02/17/19 16:10 Phenylephrine HCl 1 mg/ Sodium (Chloride) 10.1 mls @ 1 mls/sec IV TITRATE BALJIT; Protocol Dextrose/Lactated Ringer's (Dextrose 5%-Lactated Ringers) 1,000 mls @ 125 mls/ hr IV ASDIRECTED BALJIT Stop: 02/18/19 01:59 Ibuprofen (Motrin) 600 mg PO Q6H PRN PRN Reason: mild pain or fever Last Admin: 02/19/19 04:01 Dose: 600 mg Ketorolac Tromethamine (Toradol) Confirm Administered Dose 30 mg .ROUTE .STK- MED ONE Stop: 02/17/19 16:10 Ketorolac Tromethamine (Toradol) 30 mg IVPUSH Q6H BALJIT Stop: 02/18/19 10:01 Last Admin: 02/18/19 09:27 Dose: Not Given Labetalol HCl (Normodyne) 10 mg IVPUSH ONETIME ONE; Protocol Stop: 02/17/19 06:12 Last Admin: 02/17/19 06:26 Dose: 10 mg Labetalol HCl (Normodyne) 10 mg IVPUSH ONETIME ONE; Protocol Stop: 02/17/19 08:35 Last Admin: 02/17/19 08:42 Dose: 10 mg Labetalol HCl (Normodyne) 20 mg IVPUSH ONETIME ONE; Protocol Stop: 02/17/19 11:52 Last Admin: 02/17/19 12:06 Dose: 20 mg Labetalol HCl (Normodyne) 20 mg IVPUSH ONETIME ONE; Protocol Stop: 02/17/19 12:38 Last Admin: 02/17/19 12:40 Dose: 20 mg Lidocaine HCl (Xylocaine 1%) 50 ml INJECT ONETIME ONE Stop: 02/16/19 21:16 Last Admin: 02/17/19 19:28 Dose: Not Given Metoclopramide HCl (Reglan) 10 mg IVPUSH ONETIME ONE Stop: 02/17/19 15:38 Last Admin: 02/17/19 16:08 Dose: 10 mg Morphine Sulfate (Duramorph Pf) Confirm Administered Dose 10 mg .ROUTE .STK-MED ONE Stop: 02/17/19 16:10 Nalbuphine HCl (Nubain) 10 mg IVPUSH Q2H PRN PRN Reason: pain Last Admin: 02/17/19 10:11 Dose: 10 mg Nalbuphine HCl (Nubain) 10 mg IVPUSH Q2H PRN PRN Reason: pain Naloxone HCl (Narcan) 0.1 mg IVPUSH SEECOMMENT PRN PRN Reason: Respiratory Depression Ondansetron HCl (Zofran) 4 mg IVPUSH Q4H PRN PRN Reason: Nausea/Vomiting Ondansetron HCl (Zofran) Confirm Administered Dose 4 mg .ROUTE .STK-MED ONE Stop: 02/17/19 16:10 Ondansetron HCl (Zofran) 4 mg IVPUSH ONETIME PRN PRN Reason: Nausea/Vomiting Oxycodone/Acetaminophen (Percocet 325-5 Mg) 2 tab PO Q6H PRN PRN Reason: Pain (moderate 4-6) Last Admin: 05/01/19 10:01 Dose: 1 tab Oxycodone/Acetaminophen (Percocet 325-5 Mg) 1 - 2 tab PO Q6H PRN PRN Reason: Pain (moderate 4-6) Oxytocin (Pitocin) Confirm Administered Dose 10 unit .ROUTE .STK-MED ONE Stop: 02/17/19 16:10 Phenylephrine HCl (Phenylephrine In Ns 100 Mcg/Ml) Confirm Administered Dose 1 mg .ROUTE .STK-MED ONE Stop: 02/17/19 16:10 Phenylephrine HCl (Phenylephrine In Ns 100 Mcg/Ml) Confirm Administered Dose 1 mg .ROUTE .STK-MED ONE Stop: 02/17/19 17:16 Simethicone (Simethicone) 80 mg PO TIDAC PRN PRN Reason: Gas Last Admin: 02/19/19 06:17 Dose: 80 mg Sodium Chloride (Saline Flush) 10 ml FLUSH ASDIRECTED PRN PRN Reason: Keep Vein Open Sodium Chloride (Saline Flush) 10 ml FLUSH ASDIRECTED PRN PRN Reason: Keep Vein Open - Exam General: Reports: Alert, Oriented HEENT: Reports: Pupils Equal, Pupils Reactive, EOMI, Mucous Membr. Moist/Omar Neck: Reports: Supple Lungs: Reports: Clear to Auscultation, Normal Respiratory Effort Cardiovascular: Reports: Regular Rate, Regular Rhythm GI/Abdominal Exam: Normal Bowel Sounds, Soft, Non-Tender, No Organomegaly, No Distention, No Abnormal Bruit, No Mass, Pelvis Stable Rectal (Female) Exam: Normal Rectal Tone Back Exam: Reports: Normal Inspection, Full Range of Motion Extremities: Normal Inspection, Normal Range of Motion, Non-Tender, No Pedal Edema, Normal Capillary Refill Skin: Reports: Warm, Dry, Intact Wound/Incisions: Reports: Healing Well Neurological: Reports: No New Focal Deficit Psy/Mental Status: Reports: Alert, Normal Affect, Normal Mood
--- NOTE | 2019-03-03 10:02 | PCM.PNPP ---
- General Info Date of Service: 02/18/19 Functional Status: Reports: Pain Controlled - Review of Systems General: Reports: No Symptoms HEENT: Reports: No Symptoms Pulmonary: Reports: No Symptoms Cardiovascular: Reports: No Symptoms Gastrointestinal: Reports: No Symptoms Genitourinary: Reports: No Symptoms Musculoskeletal: Reports: No Symptoms Skin: Reports: No Symptoms Neurological: Reports: No Symptoms Psychiatric: Reports: No Symptoms - General Info Date of Service: 02/18/19 - Patient Data Vital Signs - Most Recent: Last Vital Signs Temp 36.4 C 02/19/19 08:30 Pulse 78 02/19/19 08:30 Resp 16 02/19/19 08:30 BP 136/83 02/19/19 08:30 Pulse Ox 98 02/19/19 08:30 Weight - Most Recent: 105.687 kg Med Orders - Current: Current Medications Discontinued Medications Acetaminophen (Tylenol) 650 mg PO Q4H PRN PRN Reason: Pain (Mild 1-3) and fever Bupivacaine HCl (Marcaine 0.5%) Confirm Administered Dose 30 ml .ROUTE .STK-MED ONE Stop: 02/17/19 15:40 Last Admin: 02/17/19 16:49 Dose: 20 ml Cefazolin Sodium (Ancef) Confirm Administered Dose 2 gm .ROUTE .STK-MED ONE Stop: 02/17/19 16:10 Citric Acid/Sodium Citrate (Bicitra Solution) 30 ml PO ONETIME ONE Stop: 02/17/19 15:38 Last Admin: 02/17/19 16:08 Dose: 30 ml Diphenhydramine HCl (Benadryl) 25 mg IVPUSH Q6H PRN PRN Reason: pruritis Diphenhydramine HCl (Benadryl) 25 mg IVPUSH Q6H PRN PRN Reason: Itching or Nausea Docusate Sodium (Colace) 100 mg PO BID PRN PRN Reason: Constipation Last Admin: 02/19/19 06:17 Dose: 100 mg Emollient Ointment (Lansinoh Hpa) 0 gm TOP ASDIRECTED PRN PRN Reason: Sore Nipples Ephedrine Sulfate (Ephedrine Sulfate) 5 mg IVPUSH ASDIRECTED PRN PRN Reason: Hypotension Ephedrine Sulfate (Ephedrine Sulfate) 5 mg IVPUSH ASDIRECTED PRN PRN Reason: Hypotension Ephedrine Sulfate (Ephedrine Sulfate) Confirm Administered Dose 50 mg .ROUTE .STK-MED ONE Stop: 02/17/19 17:08 Ephedrine Sulfate (Ephedrine Sulfate) 5 mg IVPUSH SEECOMMENT PRN PRN Reason: Other Fentanyl (Sublimaze) 100 mcg EPIDUR Q3H PRN PRN Reason: Pain Fentanyl (Sublimaze) 50 mcg IVPUSH Q5M PRN PRN Reason: Pain Fentanyl (Sublimaze) Confirm Administered Dose 100 mcg .ROUTE .STK-MED ONE Stop: 02/17/19 17:10 Fentanyl/Bupivacaine HCl (Gzionyzk-Sbalw-Aj 2 Mcg/Ml-0.125%) 100 ml EPIDUR ASDIRECTED PRN PRN Reason: Pain Hydralazine HCl (Apresoline) 5 mg IVPUSH ONETIME ONE Stop: 02/17/19 09:52 Last Admin: 02/17/19 10:03 Dose: 5 mg Hydromorphone HCl (Dilaudid) 0.5 mg IVPUSH Q15M PRN PRN Reason: Pain (severe 7-10) Lactated Ringer's (Ringers, Lactated) 1,000 mls @ 100 mls/hr IV ASDIRECTED BALJIT Last Admin: 02/17/19 03:16 Dose: 50 mls/hr Oxytocin/Lactated Ringer's (Pitocin In Lr 10 Units/1,000 Ml) 10 unit in 1,000 mls @ 12 mls/hr IV TITRATE BALJIT; Protocol Last Titration: 02/17/19 16:00 Dose: 0 munits/min, 0 mls/hr Oxytocin/Lactated Ringer's (Pitocin In Lr 10 Units/1,000 Ml) 10 unit in 1,000 mls @ 100 mls/hr IV .CONTINUOUS BALJIT; Protocol Magnesium Sulfate 4 gm/ Premix 50 mls @ 190 mls/hr IV ONETIME ONE Stop: 02/17/19 03:15 Last Admin: 02/17/19 03:05 Dose: 190 mls/hr Magnesium Sulfate 2 gm/ Premix 50 mls @ 25 mls/hr IV Q1H BALJIT Stop: 02/17/19 04:59 Magnesium Sulfate (Magnesium Sulfate 40 Gm In Water 1000 Ml) 40 gm in 1,000 mls @ 50 mls/hr IV ASDIRECTED BALJIT Last Infusion: 02/17/19 16:00 Dose: 0 mls/hr Phenylephrine HCl 1 mg/ Sodium (Chloride) 10.1 mls @ 1 mls/sec IV TITRATE BALJIT; Protocol Lactated Ringer's (Ringers, Lactated) 1,000 mls @ 125 mls/hr IV ASDIRECTED BALJIT Lactated Ringer's (Ringers, Lactated) Confirm Administered Dose 2,000 mls @ as directed .ROUTE .STK-MED ONE Stop: 02/17/19 16:10 Phenylephrine HCl 1 mg/ Sodium (Chloride) 10.1 mls @ 1 mls/sec IV TITRATE BALJIT; Protocol Dextrose/Lactated Ringer's (Dextrose 5%-Lactated Ringers) 1,000 mls @ 125 mls/ hr IV ASDIRECTED BALJIT Stop: 02/18/19 01:59 Ibuprofen (Motrin) 600 mg PO Q6H PRN PRN Reason: mild pain or fever Last Admin: 02/19/19 04:01 Dose: 600 mg Ketorolac Tromethamine (Toradol) Confirm Administered Dose 30 mg .ROUTE .STK- MED ONE Stop: 02/17/19 16:10 Ketorolac Tromethamine (Toradol) 30 mg IVPUSH Q6H [facility] Stop: 02/18/19 10:01 Last Admin: 02/18/19 09:27 Dose: Not Given Labetalol HCl (Normodyne) 10 mg IVPUSH ONETIME ONE; Protocol Stop: 02/17/19 06:12 Last Admin: 02/17/19 06:26 Dose: 10 mg Labetalol HCl (Normodyne) 10 mg IVPUSH ONETIME ONE; Protocol Stop: 02/17/19 08:35 Last Admin: 02/17/19 08:42 Dose: 10 mg Labetalol HCl (Normodyne) 20 mg IVPUSH ONETIME ONE; Protocol Stop: 02/17/19 11:52 Last Admin: 02/17/19 12:06 Dose: 20 mg Labetalol HCl (Normodyne) 20 mg IVPUSH ONETIME ONE; Protocol Stop: 02/17/19 12:38 Last Admin: 02/17/19 12:40 Dose: 20 mg Lidocaine HCl (Xylocaine 1%) 50 ml INJECT ONETIME ONE Stop: 02/16/19 21:16 Last Admin: 02/17/19 19:28 Dose: Not Given Metoclopramide HCl (Reglan) 10 mg IVPUSH ONETIME ONE Stop: 02/17/19 15:38 Last Admin: 02/17/19 16:08 Dose: 10 mg Morphine Sulfate (Duramorph Pf) Confirm Administered Dose 10 mg .ROUTE .STK-MED ONE Stop: 02/17/19 16:10 Nalbuphine HCl (Nubain) 10 mg IVPUSH Q2H PRN PRN Reason: pain Last Admin: 02/17/19 10:11 Dose: 10 mg Nalbuphine HCl (Nubain) 10 mg IVPUSH Q2H PRN PRN Reason: pain Naloxone HCl (Narcan) 0.1 mg IVPUSH SEECOMMENT PRN PRN Reason: Respiratory Depression Ondansetron HCl (Zofran) 4 mg IVPUSH Q4H PRN PRN Reason: Nausea/Vomiting Ondansetron HCl (Zofran) Confirm Administered Dose 4 mg .ROUTE .STK-MED ONE Stop: 02/17/19 16:10 Ondansetron HCl (Zofran) 4 mg IVPUSH ONETIME PRN PRN Reason: Nausea/Vomiting Oxycodone/Acetaminophen (Percocet 325-5 Mg) 2 tab PO Q6H PRN PRN Reason: Pain (moderate 4-6) Last Admin: 02/18/19 10:01 Dose: 1 tab Oxycodone/Acetaminophen (Percocet 325-5 Mg) 1 - 2 tab PO Q6H PRN PRN Reason: Pain (moderate 4-6) Oxytocin (Pitocin) Confirm Administered Dose 10 unit .ROUTE .STK-MED ONE Stop: 02/17/19 16:10 Phenylephrine HCl (Phenylephrine In Ns 100 Mcg/Ml) Confirm Administered Dose 1 mg .ROUTE .STK-MED ONE Stop: 02/17/19 16:10 Phenylephrine HCl (Phenylephrine In Ns 100 Mcg/Ml) Confirm Administered Dose 1 mg .ROUTE .STK-MED ONE Stop: 02/17/19 17:16 Simethicone (Simethicone) 80 mg PO TIDAC PRN PRN Reason: Gas Last Admin: 02/19/19 06:17 Dose: 80 mg Sodium Chloride (Saline Flush) 10 ml FLUSH ASDIRECTED PRN PRN Reason: Keep Vein Open Sodium Chloride (Saline Flush) 10 ml FLUSH ASDIRECTED PRN PRN Reason: Keep Vein Open - Interaction Support Person: - Recovery Exam Fundal Tone: Firm Fundal Level: At Umbilicus Fundal Placement: Midline Lochia Amount: Scant, Small, Clots/Tissue Present Lochia Color: Rubra/Red Perineum Description: Intact, Minimal Bruising/Swelling Episiotomy/Laceration: None Bladder Status: Voiding Urinary Elimination: Voided - Exam General: Alert, Oriented HEENT: Pupils Equal Neck: Supple Lungs: Clear to Auscultation, Normal Respiratory Effort Cardiovascular: Regular Rate, Regular Rhythm GI/Abdominal Exam: Normal Bowel Sounds, Soft, Non-Tender, No Organomegaly, No Distention, No Abnormal Bruit, No Mass, Pelvis Stable Extremities: Normal Inspection, Normal Range of Motion, Non-Tender, No Pedal Edema, Normal Capillary Refill Skin: Warm, Dry, Intact Wound/Incisions: Healing Well Neurological: No New Focal Deficit Psy/Mental Status: Alert, Normal Affect, Normal Mood - Problem List Review Problem List Initiated/Reviewed/Updated: Yes - Assessment Assessment:: s/p 1ltcs. Doing well. - Plan Plan:: Routine postop care
== END 2019-02-19 12:50 | disposition home or self-care (01) | DRG 540 ==
LOC: UNDOADMOB 18:59 → JD.OB 18:59 → INTOOBSV 21:15 → OBSVTOIN 21:15 → JD.OB 02-17 16:55 → OBSVTOIN 02-17 16:55 → JD.OB 02-17 22:02 → UNDODISIN 02-19 12:50
PROVIDERS: ADMIT Obstetrics & Gynecology; ATTEND Obstetrics & Gynecology
PROC: 3E033VJ Introduction of Other Hormone into Peripheral Vein, Percutaneous Approach (ICD-10-PCS; principal; 2019-02-16)
PROC: 10D00Z1 Extraction of Products of Conception, Low, Open Approach (ICD-10-PCS; principal; 2019-02-16)
PROC: 10907ZC Drainage of Amniotic Fluid, Therapeutic from Products of Conception, Via Natural or Artificial Opening (ICD-10-PCS; principal; 2019-02-16)
DX: O48.0 Post-term pregnancy (principal); Z3A.41 41 weeks gestation of pregnancy; O99.284 Endocrine, nutritional and metabolic diseases complicating childbirth; E28.2 Polycystic ovarian syndrome; O99.62 Diseases of the digestive system complicating childbirth; Z37.0 Single live birth; K21.9 Gastro-esophageal reflux disease without esophagitis; O77.0 Labor and delivery complicated by meconium in amniotic fluid; O62.1 Secondary uterine inertia; O13.4 Gestational [pregnancy-induced] hypertension without significant proteinuria, complicating childbirth
CPT/HCPCS: 01961; 36415; 59025; 80053; 82565; 83615; 84450; 84460; 84520; 84550; 85025; 86592; 94762; A9270-GY; J0360; J0690; J1885; J2270; J2300; J2370; J2405; J2590; J2765; J3010; J3475; J3490; J7120